=== PATIENT | female | born 1950 | race Caucasian/White ===

== ENCOUNTER 2021-02-06 12:59 | Observation (INO) ==
[~2021-02-06 12:59] MED LIST: NS 0.9% 1000 ml BAG 1,000 ML IV SCH
[2021-02-06 14:05] LABS: Mean Platelet Volume 9.5 fL (7.4-10.4); Platelet Count 419 10^3/uL (150-450)
[2021-02-06 14:22] LABS: Activated Partial Thrombo Time 32.4 seconds (26.0-38.0); INR 1.07 (0.86-1.15); Rapid COVID-19 Molecular Undetected (Undetected)
[2021-02-06] MEDS ORDERED: ceFAZolin 1 GM ADVAN 1 GM ADDV.VIAL IVPB ONE (14:29)
[2021-02-06] MEDS ORDERED: Midazolam 2 mg/2 ml VIAL 1 mg/ml 2 ml VIAL (2 mg) ONE (14:29)
[2021-02-06] MEDS ORDERED: fentaNYL 100 mcg/2 ml 50 MCG/ML VIAL ONE (14:29)
[2021-02-06] MEDS ORDERED: Lidocaine 2% JELLY 6 ML TOPICAL ONE (15:01)
[2021-02-06] MEDS ORDERED: Ondansetron 4 mg VIAL 2 MG/ML 2 ml VIAL IV PRN (16:12)
[2021-02-06] MEDS ORDERED: Morphine 2 MG/ML SYRINGE IV PRN (16:12)
[2021-02-06] MEDS ORDERED: Dextrose 50% Syringe 50 ml 25 GM/50 ML SYRINGE IV PUSH PRN (16:12)
[2021-02-06] MEDS: Ondansetron 4 mg VIAL 2 MG/ML 2 ml VIAL ONE ×2 (17:16→17:33)
[2021-02-07 06:50] LABS: Albumin 3.5 g/dL (3.2-5.2); Albumin/Globulin Ratio 1.1 (1-3); Calcium 9.1 mg/dL (8.6-10.3); Globulin 3.3 g/dL (2-4); Potassium 3.8 mmol/L (3.5-5.0); Total Bilirubin 0.5 mg/dL (0.2-1.0); Total Protein 6.8 g/dL (6.4-8.9)
[2021-02-07 07:07] LABS: ABS Lymphocytes 1.7 10^3/ul (1.0-4.8); ABS Monocytes 0.7 10^3/ul (0-0.8); ABS Neutrophils 6.4 10^3/ul (1.5-7.7); Eosinophil % 0.3 %; Hematocrit 35 % (35-47); Hemoglobin 11.5 g/dL (12.0-16.0); Lymphocyte % 19.1 %; Mean Corpuscular HGB Conc 33 g/dL (31-36); Mean Corpuscular Hemoglobin 27 pg (27-31); Mean Corpuscular Volume 81 fL (80-97); Mean Platelet Volume 9.8 fL (7.4-10.4); Platelet Count 332 10^3/uL (150-450); Red Cell Distribution Width 15 % (10-15); White Blood Count 8.8 10^3/uL (3.5-10.8)
[2021-02-07 08:25] VITALS: BP 150/76
[2021-02-07] MEDS ORDERED: ceFAZolin 1 GM X ONE DOSE (AddVan) IVPB (11:00)
== END 2021-02-07 11:20 | disposition home or self-care (01) ==
LOC: SP 12:59 → MED 12:59
PROVIDERS: ADMIT Internal Medicine Hematology & Oncology; ATTEND Registered Nurse Oncology

== ENCOUNTER 2021-05-01 14:14 | Inpatient (IN) ==
[2021-05-01 15:41] LABS: ABS Lymphocytes 0.1 10^3/ul (1.0-4.8); ABS Monocytes 0.6 10^3/ul (0-0.8); ABS Neutrophils 14.4 10^3/ul (1.5-7.7); Eosinophil % 0.1 %; Hematocrit 32 % (35-47); Hemoglobin 10.7 g/dL (12.0-16.0); Lymphocyte % 0.6 %; Mean Corpuscular HGB Conc 34 g/dL (31-36); Mean Corpuscular Hemoglobin 27 pg (27-31); Mean Corpuscular Volume 81 fL (80-97); Mean Platelet Volume 8.4 fL (7.4-10.4); Platelet Count 348 10^3/uL (150-450); Red Blood Count 3.94 10^6 /uL (3.70-4.87); Red Cell Distribution Width 22 % (10-15); White Blood Count 15.1 10^3/uL (3.5-10.8)
[2021-05-01 15:52] LABS: Osmolality Serum 280 mOsm/kg (275-295)
[2021-05-01 15:53] LABS: Albumin 3.5 g/dL (3.2-5.2); Calcium 9.4 mg/dL (8.6-10.3); Potassium 3.9 mmol/L (3.5-5.0); Total Bilirubin 0.9 mg/dL (0.2-1.0)
[2021-05-01 15:59] LABS: Albumin/Globulin Ratio 1.1 (1-3); C Reactive Protein 38.16 mg/L (<8.01); Globulin 3.3 g/dL (2-4); Total Protein 6.8 g/dL (6.4-8.9); eGFR CKD-EPI 94.2 (>60)
[2021-05-01 16:13] LABS: TSH Ultra Thyroid Stim Horm 2.66 mcIU/mL (0.34-5.60)
[2021-05-01] MEDS ORDERED: Dextrose 50% Syringe 50 ml 25 GM/50 ML SYRINGE IV PUSH PRN (16:36)
[2021-05-01 17:09] LABS: Urine Appearance Cloudy; Urine Bilirubin Negative (Negative); Urine Blood Negative (Negative); Urine Color Yellow; Urine Glucose 3+(>=500 mg/dL) (Negative); Urine Ketones 1+ (Negative); Urine Nitrite Negative (Negative); Urine Protein Negative (Negative); Urine Specific Gravity 1.023 (1.002-1.030); Urine Urobilinogen Negative (Negative)
[2021-05-01] MEDS ORDERED: Iodixanol (CONTRAST) 320 MG/ML 100 ML SDV IV ONE (17:24)
[2021-05-01 18:44] LABS: HIV 4th Generation Nonreactive (Nonreactive)
[2021-05-01 19:06] LABS: Urine Osmo 572 mOsm/kg (150-1150)
[2021-05-01 19:53] LABS: Troponin I 0.02 ng/mL (<0.03)
[2021-05-01] MEDS: Sucralfate 1 gm SUSP 1 GM/10 ML UDC PO SCH ×2 (20:51→20:52)
[2021-05-01] MEDS: NS 0.9% 1000 ml BAG 1,000 ML IV SCH (20:51)
[2021-05-01] MEDS: Insulin GLARGINE 100 un/ml 10 ml VIAL SUBCUT SCH (20:51)
[2021-05-01] MEDS: Heparin 5000 UNITS/ML 1 mL VIAL SUBCUT SCH (20:52)
[2021-05-02] MEDS: Heparin 5000 UNITS/ML 1 mL VIAL SUBCUT SCH ×3 (04:26→20:18)
[2021-05-02 04:40] LABS: ABS Lymphocytes 0.2 10^3/ul (1.0-4.8); ABS Monocytes 0.5 10^3/ul (0-0.8); Eosinophil % 0.2 %; Hematocrit 28 % (35-47); Hemoglobin 9.5 g/dL (12.0-16.0); Lymphocyte % 2.8 %; Mean Corpuscular HGB Conc 34 g/dL (31-36); Mean Corpuscular Hemoglobin 28 pg (27-31); Mean Corpuscular Volume 81 fL (80-97); Mean Platelet Volume 8.1 fL (7.4-10.4); Platelet Count 309 10^3/uL (150-450); Red Blood Count 3.42 10^6 /uL (3.70-4.87); Red Cell Distribution Width 22 % (10-15); White Blood Count 8.8 10^3/uL (3.5-10.8)
[2021-05-02 04:57] LABS: Albumin 3.1 g/dL (3.2-5.2); C Reactive Protein 52.71 mg/L (<8.01); Calcium 8.6 mg/dL (8.6-10.3); Potassium 3.8 mmol/L (3.5-5.0); Total Bilirubin 0.7 mg/dL (0.2-1.0); Total Protein 6.1 g/dL (6.4-8.9); eGFR CKD-EPI 97.1 (>60)
[2021-05-02] MEDS: NS 0.9% 1000 ml BAG 1,000 ML IV SCH ×2 (07:05→19:05)
[2021-05-02] MEDS: Sucralfate 1 gm SUSP 1 GM/10 ML UDC PO SCH ×4 (07:06→20:24)
[2021-05-02] MEDS ORDERED: Gadoteridol (CONTRAST) 279.3 MG/ML 10 ML IV ONE (15:06)
[2021-05-02] MEDS: Insulin GLARGINE 100 un/ml 10 ml VIAL SUBCUT SCH (20:18)
[2021-05-03] MEDS: NS 0.9% 1000 ml BAG 1,000 ML IV SCH ×2 (05:27→16:41)
[2021-05-03] MEDS: Heparin 5000 UNITS/ML 1 mL VIAL SUBCUT SCH ×3 (05:27→21:30)
[2021-05-03] MEDS: Sucralfate 1 gm SUSP 1 GM/10 ML UDC PO SCH ×4 (07:40→21:31)
[2021-05-03 12:37] LABS: ABS Eosinophils 0.1 10^3/ul (0-0.6); ABS Lymphocytes 0.2 10^3/ul (1.0-4.8); ABS Monocytes 0.7 10^3/ul (0-0.8); Eosinophil % 0.8 %; Hematocrit 27 % (35-47); Hemoglobin 8.9 g/dL (12.0-16.0); Lymphocyte % 2.5 %; Mean Corpuscular HGB Conc 34 g/dL (31-36); Mean Corpuscular Hemoglobin 28 pg (27-31); Mean Corpuscular Volume 82 fL (80-97); Mean Platelet Volume 8.3 fL (7.4-10.4); Platelet Count 295 10^3/uL (150-450); Red Blood Count 3.24 10^6 /uL (3.70-4.87); Red Cell Distribution Width 22 % (10-15)
[2021-05-03 13:00] LABS: ALT 35 U/L (7-52); AST 10 U/L (13-39); Albumin/Globulin Ratio 1.1 (1-3); Alkaline Phosphatase 158 U/L (35-149); Anion Gap 3 mmol/L (2-11); Blood Urea Nitrogen 6 mg/dL (6-24); C Reactive Protein 19.13 mg/L (<8.01); CO2 Carbon Dioxide 29 mmol/L (22-32); Calcium 8.7 mg/dL (8.6-10.3); Chloride 98 mmol/L (101-111); Globulin 2.7 g/dL (2-4); Glucose 216 mg/dL (70-100); Potassium 3.3 mmol/L (3.5-5.0); Sodium 130 mmol/L (135-145); Total Protein 5.7 g/dL (6.4-8.9); eGFR CKD-EPI 97.1 (>60)
[2021-05-03 13:13] LABS: LDH 128 U/L (140-271); Rheumatoid Factor < 10 IU/mL (<15)
[2021-05-03] MEDS: Insulin GLARGINE 100 un/ml 10 ml VIAL SUBCUT SCH (21:31)
[2021-05-04] MEDS: NS 0.9% 1000 ml BAG 1,000 ML IV SCH (02:54)
[2021-05-04] MEDS: Heparin 5000 UNITS/ML 1 mL VIAL SUBCUT SCH ×3 (05:38→21:00)
[2021-05-04] MEDS: Sucralfate 1 gm SUSP 1 GM/10 ML UDC PO SCH ×4 (08:25→20:01)
[2021-05-04] MEDS ORDERED: Senna TAB 8.6 mg TAB PO ONE (10:24)
[2021-05-04] MEDS: Polyethylene Glycol 3350 17 GM PACKET PO SCH (10:48)
[2021-05-04] MEDS: NS 0.9% w/ 40 Meq KCL 1000 ML 1,000 ML IV SCH (10:48)
[2021-05-04] MEDS: Insulin GLARGINE 100 un/ml 10 ml VIAL SUBCUT SCH (19:56)
[2021-05-05] MEDS: NS 0.9% w/ 40 Meq KCL 1000 ML 1,000 ML IV SCH (00:12)
[2021-05-05] MEDS: Heparin 5000 UNITS/ML 1 mL VIAL SUBCUT SCH (05:47)
[2021-05-05] MEDS: Polyethylene Glycol 3350 17 GM PACKET PO SCH (08:45)
[2021-05-05] MEDS: Sucralfate 1 gm SUSP 1 GM/10 ML UDC PO SCH ×2 (08:50→11:44)
[2021-05-05 13:14] VITALS: BP 157/75
[2021-05-05 20:10] LABS: Adenovirus Undetected (Undetected); Bordetella parapertussis Undetected (Undetected); Bordetella pertussis Undetected (Undetected); Chlamydophila pneumoniae Undetected (Undetected); Coronavirus 229E Undetected (Undetected); Coronavirus HKU1 Undetected (Undetected); Coronavirus NL63 Undetected (Undetected); Coronavirus OC43 Undetected (Undetected); Human Metapneumovirus Undetected (Undetected); Human Rhinovirus/Enterovirus Undetected (Undetected); Influenza A Undetected (Undetected); Influenza B Undetected (Undetected); Mycoplasmoides pneumoniae Undetected (Undetected); Parainfluenza Virus 1 Undetected (Undetected); Parainfluenza Virus 2 Undetected (Undetected); Parainfluenza Virus 3 Undetected (Undetected); Parainfluenza Virus 4 Undetected (Undetected); Respiratory Syncytial Virus Undetected (Undetected); Specimen Source NASOPHARYNGEAL SWAB
[2021-05-08 16:03] LABS: Cryptococcus Antigen w/Titer Negative (Negative)
== END 2021-05-05 13:20 | disposition home or self-care (01) | DRG 864 ==
LOC: CHOA 14:14 → MEDTELE 15:14
PROVIDERS: ADMIT Internal Medicine Hematology & Oncology; ATTEND Registered Nurse Oncology